=== PATIENT | female | born 1975 | race African-American/Black ===

== ENCOUNTER 2024-07-30 08:35 | Emergency (ER) | payer OTHER, SELFPAY ==
[2024-07-30] VITALS (7 sets, daily range): BP systolic 111–161; BP diastolic 85–110; PULSE 66–78; RESP 14–15; TEMP 36.4; O2SAT 99–100
--- NOTE | ~2024-07-30 | CT_ITS ---
EXAMINATION: CTA brain carotid DATE: 07/30/2024 10:03 INDICATION: Syncope. TECHNIQUE: Computed tomographic angiography (CTA) of the head was performed without and with 100 mL O mnipaque-350 intravenous contrast. CTA of the neck was performed with intravenous contrast. Automated exposure control and iterative reconstruction technique were employed. The dose-length product was 1 462.91 mGy-cm. Maximum intensity projection and volume rendered 3D-reconstructions were created by michelle chris technologist on a separate workstation. COMPARISON: None. FINDINGS: HEAD CTA: There is no intracranial hemorrhage, acute infarction, or abnormal intracranial mass lesion . The ventricles are normal in size. The mastoid air cells are normal. The orbits are normal. The par anasal sinuses are clear. Right vertebral artery is dominant. There is no significant stenosis of bas ilar artery or the posterior cerebral arteries. There is no significant stenosis of the intracranial internal carotid arteries or anterior or middle cerebral arteries. Anterior communicating artery is n ormal. The posterior communicating arteries are normal. There is no aneurysm. NECK CTA: There are no pathologically enlarged lymph nodes. There is no significant stenosis of the v ertebral arteries. There is no significant plaque in the proximal internal carotid. There is 0% steno sis of the proximal right internal carotid artery relative to normal distal artery lumen diameter (NA SCET criteria). There is 0% stenosis of the proximal left internal carotid artery relative to normal distal artery lumen diameter. There is mild cervical spondylosis. IMPRESSION: 1. Normal brain. No aneurysm or significant intracranial arterial stenosis 2. 0% stenosis of the proximal internal carotid arteries relative to normal distal artery lumen diame ters (NASCET criteria). Reviewed, dictated and finalized at location A. IMPRESSION: 1. Normal brain. No aneurysm or significant intracranial arterial stenosis 2. 0% stenosis of the proximal internal carotid arteries relative to normal dis jonathan artery lumen diameters (NASCET criteria).
--- NOTE | 2024-07-30 09:37 | ED.GENADULT ---
HPI - General Adult General Chief complaint: Recheck/Abnormal Lab/Rx Stated complaint: HTN Time Seen by Provider: 07/30/24 09:15 History of Present Illness HPI narrative: 48-year-old female presenting to the emergency department for evaluation after having a syncopal episode. Patient states approximately 3 days ago she was riding her palatine on and she was pressure herself hard when she had a syncopal episode causing herself to fall to the floor. Patient states she rested for a bit and suspects that she was unconscious for less than a minute. Patient was able to get back to her normal day and did go to work. She states she has been having some elevated blood pressures with her primary care physician but has not yet started on blood pressure medications. Patient is still concerned on why she had the syncopal episode. Patient states during the fall she did injure her right hip and right pinky toe but does not want any imaging of these. Related Data Home Medications Medication Instructions Recorded Confirmed No Home Medications 07/30/24 07/30/24 Allergies Allergy/AdvReac Type Severity Reaction Status Date / Time No Known Allergies Allergy Verified 07/30/24 08:43 Review of Systems Review of Systems: All systems reviewed & are unremarkable except as noted in HPI and below Exam Narrative: APPEARANCE: Well appearing, no pain, no distress, well-nourished. HEAD: normocephalic, atraumatic. EYES: PERRLA/EOMI, conjunctivae clear. NOSE: Normal no drainage EARS:TMS clear with good light reflex. THROAT: Pharynx clear, no exudate. NECK: Supple. No adenopathy, no masses. RESPIRATORY: Airway patent, respirations nonlabored. Clear to auscultation bilaterally, no rales, rhonchi, wheezing. CARDIOVASCULAR: Regular rate and rhythm without murmurs rubs or gallops. ABDOMINAL: Soft, nontender, nondistended, normal bowel sounds MUSCULOSKELETAL: Moves all extremities. Strength/ROM intact, No edema, No calf tenderness. NEURO: Alert. Cranial nerves II through XII intact. Good gait. Good coordination SKIN: Warm, dry. Normal Color Course Vital Signs Vital signs: Vital Signs Temperature 97.5 F L 07/30/24 08:41 Pulse Rate 78 07/30/24 08:41 Respiratory Rate 14 07/30/24 08:41 Blood Pressure 161/97 H 07/30/24 08:41 Pulse Oximetry 99 07/30/24 08:41 Oxygen Delivery Room Air 07/30/24 08:41 Temperature 97.5 F L 07/30/24 08:41 Pulse Rate 68 07/30/24 11:10 Respiratory Rate 15 07/30/24 10:58 Blood Pressure 111/96 H 07/30/24 11:35 Pulse Oximetry 100 07/30/24 10:58 Oxygen Delivery Room Air 07/30/24 08:41 Medical Decision Making MDM Narrative Medical decision making narrative: 48-year-old female presenting to the emergency department for evaluation for having a syncopal episode 3 days ago while working out. Patient is currently afebrile with no leukocytosis and a stable hemoglobin of 14.1. Patient has a normal INR. Patient has no acute electrolyte abnormalities. Patient's thyroid hormone is normal. EKG showed sinus bradycardia with possible left atrial enlargement with nonspecific T-wave abnormalities. Patient does have history of hypertension. Patient had negative orthostatics. Patient was offered admission for further syncopal workup but patient declined. Patient was advised to have close follow-up with her primary care physician. All questions concerns were addressed. Differential Diagnosis Differential Diagnosis: CVA, TIA, seizure, of syncope, cardiac arrhythmia Vital Signs Vital Signs: Vital Signs Temperature 97.5 F L 07/30/24 08:41 Pulse Rate 78 07/30/24 08:41 Respiratory Rate 14 07/30/24 08:41 Blood Pressure 161/97 H 07/30/24 08:41 Pulse Oximetry 99 07/30/24 08:41 Oxygen Delivery Room Air 07/30/24 08:41 Temperature 97.5 F L 07/30/24 08:41 Pulse Rate 68 07/30/24 11:10 Respiratory Rate 15 07/30/24 10:58 Blood Pressure 111/96 H 07/30/24 11:35 Pulse O
[2024-07-30 09:41] LABS: Basophils Percent Auto 0.5 % (0.2-1.2); Eosinophils Absolute Auto 0.1 K/mm3 (0-0.3); Eosinophils Percent Auto 1.9 % (0-4.4); Hematocrit 40.9 % (37.0-47.0); Hemoglobin 14.1 g/dL (12.0-15.0); Immature Granulocyte Absolute 0.01 K/mm3 (0.00-0.031); Immature Granulocyte Percent A 0.2 % (0-0.5); Lymphocytes Percent Auto 28.7 % (18.3-44.2); Mean Corpuscular HGB Conc 34.5 g/dl (32-36); Mean Corpuscular Hemoglobin 31.3 pg (26-34); Mean Corpuscular Volume 90.9 fl (80-100); Mean Platelet Volume 11.5 fl (7.4-10.4); Monocytes Absolute Auto 0.3 K/mm3 (0.1-0.6); Monocytes Percent Auto 4.6 % (2.6-8.5); Neutrophils Absolute Auto 3.8 K/mm3 (1.3-6.7); Neutrophils Percent Auto 64.1 % (45.5-73.1); Platelet Count Result 246 k/mm3 (150-375); Red Cell Distribution Width 12.3 % (11.5-14.5); White Blood Count 5.9 K/mm3 (4.5-10.0)
[2024-07-30 09:51] LABS: Alanine Aminotransferase 35 U/L (6-35); Albumin Level 4.7 g/dL (3.5-5.1); Alkaline Phosphatase 77 U/L (38-126); Anion Gap 9 mmol/L (4-12); Aspartate Amino Transferase 31 U/L (14-36); Blood Urea Nitrogen 12 mg/dL (7-17); Calcium 10.4 mg/dL (8.4-10.2); Carbon Dioxide 24 mmol/L (22-30); Chloride 105 mmol/L (98-107); Estimated CRCL calculation 71 ml/min; Estimated Glomerular Filt Rate > 60; Glucose 101 mg/dL (65-110); INR 0.9; Magnesium 2.2 mg/dL (1.6-2.3); Potassium 3.5 mmol/L (3.4-5.0); Prothrombin Time 12.9 Seconds (11.1-14.7); Sodium 138 mmol/L (137-145)
[2024-07-30 09:52] LABS: Partial Thromboplastin Time 29.4 Seconds (22.3-36.8)
[2024-07-30 10:02] LABS: Estimated CRCL calculation 64 ml/min; Estimated Glomerular Filt Rate > 60
[2024-07-30 10:32] LABS: Thyroid Stimulating Hormone Reflex 0.976 uIU/mL (0.465-4.68)
--- NOTE | 2024-07-30 10:39 | ECG_ITS ---
Test Date: 2024-07-30 10:55:52 Measurements Intervals [place] Rate: 56 P: 51 WV: 158 QRS: 29 QRSD: 85 T: 24 QT: 408 QTc: 396 Interpretive Statements SINUS BRADYCARDIA POSSIBLE LEFT ATRIAL ENLARGEMENT [-0.1mV P WAVE IN V1/V2] NONSPECIFIC T-WAVE ABNORMALITY No previous ECG available for comparison Electronically Signed On 07-30-2024 11:00:55 CDT by Ann Walker M.D.
--- NOTE | 2024-07-30 11:15 | PC.NURSE ---
Bedside report given to Anya GAUTHIER, all questions answered
== END 2024-07-30 11:47 | disposition home or self-care (01) ==
PROVIDERS: Emergency Provider Emergency Medicine
DX: R55 Syncope and collapse (principal); R00.1 Bradycardia, unspecified; R94.31 Abnormal electrocardiogram [ECG] [EKG]
CPT/HCPCS: 36415; 70496; 70498; 80053; 83735; 84443; 85025; 85610; 85730; 93005; 99284; Q9967

== ENCOUNTER 2025-07-25 09:00 | Emergency (ER) | payer BC, SELFPAY ==
[2025-07-25 09:09] VITALS: BP 145/84; PULSE 62; RESP 16; TEMP 36.6; O2SAT 100
--- NOTE | 2025-07-25 09:10 | ED_ITS ---
HPI - General Adult General Chief complaint: Allergic Reaction Stated complaint: Allergic reaction Source: patient Mode of arrival: ambulatory Limitations: no limitations History of Present Illness HPI narrative: Pt is a 49 y/o female presenting with c/o suspected allergic reaction. Pt reports on Wednesday, her tongue and throat started feeling itchy. Sx have continued since onset. No interventions. Reports being placed on Amoxicillin for dental issue 1 week ago--stopped taking abx when sx began. Denies any swelling, rash, difficulty swallowing. No other new products. No additional complaints. Related Data Home Medications ?Medication ?Instructions ?Recorded ?Confirmed ?Last Taken ?Type cetirizine 10 mg tablet (Zyrtec) 10 mg PO DAILY PRN 05/25/25 Unknown History amoxicillin 500 mg capsule mg 07/25/25 Unknown Histor y Allergies Allergy/AdvReac Type Severity Reaction Status Date / Time amoxicillin Allergy Severe Anaphylaxis Verified 07/25/25 09:31 Review of Systems Review of Systems: CONSTITUTIONAL: Denies body aches, fever, chills, or sweats. EYES: Denies visual changes, redness, or discharge. ENT: Reports itchy tongue, itchy throat. Denies rhinorrhea, congestion, sore throat, or otalgia. CARDIOVASCULAR: Denies chest pain, palpitations, or edema. RESPIRATORY: Denies cough or dyspnea. GASTROINTESTINAL: Denies abdominal pain, nausea, vomiting, or diarrhea. GENITOURINARY: Denies dysuria or hematuria. SKIN: Denies rash, itching, or wounds. MUSCULOSKELETAL: Denies back pain, joint pain, or myalgia. NEUROLOGIC: Denies headache, numbness, tingling, or weakness. PSYCH: Denies depression or anxiety. All systems reviewed & are unremarkable except as noted in HPI and below [facility] Past Medical History Medical History (Updated 07/25/25 @ 10:07 by Dayo Carlos, ROGERIO) OAB (overactive bladder) Shingles (~08/2024) Family hx of colon cancer grandmother Essential hypertension (~08/2024) Syncope (~07/2024) Surgical History Surgical History Hx of cholecystectomy (~2005) H/O: section (~2004) Family History Family History Mother Hypertension Sibling Hypertension Grandparent Breast cancer Carcinoma of colon Hypertension Grandparent Breast cancer Hypertension Grandparent Hypertension Grandparent Hypertension Social History Social History Smoking status: Never smoker Alcohol intake: current Drinks per week: 4 Substance use: current Substance use type: marijuana Do You Feel Safe in your Home?: Yes Lack of Transportation: No Lack of Food: Never True Current Housing: I Have Housing Concerned About Future Housing: No Difficulty Paying Gas/Electric Bills: No Difficulty Paying for Meds: No Currently Unemployed: No Education: Associate Degree Difficulty w/ Childcare or Family Care: No Exam Narrative: GENERAL: Well-appearing, well-nourished, and in no acute distress. HEAD: Normocephalic, atraumatic. EYES: EOMI. No redness or drainage. Conjunctivae normal. ENT: Mucous membranes pink and moist. Nares clear. No rhinorrhea. TMs normal bilaterally. Uvula midline. Tongue is midline. There is moderate erythema, mild edema to uvula. Mild erythema to hard palate. White exudate noted to tonsils. Airway is patent. No evidence of zaid angina. No trismus. NECK: Normal AROM. Supple. No lymphadenopathy. CHEST: No respiratory distress. Clear to auscultation. HEART: Regular rate and rhythm. No murmur appreciated. Normal peripheral pulses. EXTREMITIES: Normal range of motion. No edema. SKIN: Warm, dry, no rash. Capillary refill normal. Normal skin turgor. NEURO: No focal deficits. Alert and oriented x3. Gait steady. PSYCH: Normal affect. No signs of depression or anxiety. Course Course Emergency Course: No strep culture ordered--recently on abx x 1 week--likely thrush as pt does not have sore throat--only swabbed due to exudate--exudate being treated as thrush Pt reports improvement of sx after meds. Ddx: allergic reaction/angioedema, thrush. Given improvement of sx after meds, will continue prednisone, antihistamine while also covering for thrush given physical exam findings and recent abx use. Discussed elevated blood pressure readings with patient and advised daily BP monitoring and f/u with PCP if persisting. Level of Care: Express Care Visit Vital Signs Vital signs: Vital Signs Temperature 97.9 F 07/25/25 09:09 Pulse Rate 62 07/25/25 09:09 Respiratory Rate 16 07/25/25 09:09 Blood Pressure 145/84 H 07/25/25 09:09 Pulse Oximetry 100 07/25/25 09:09 Temperature 97.9 F 07/25/25 09:09 Pulse Rate 62 07/25/25 09:09 Respiratory Rate 16 07/25/25 09:09 Blood Pressure 145/84 H 07/25/25 09:09 Pulse Oximetry 100 07/25/25 09:09 Medical Decision Making Vital Signs Vital Signs: Vital Signs Temperature 97.9 F 07/25/25 09:09 Pulse Rate 62 07/25/25 09:09 Respiratory Rate 16 07/25/25 09:09 Blood Pressure 145/84 H 07/25/25 09:09 Pulse Oximetry 100 07/25/25 09:09 Temperature 97.9 F 07/25/25 09:09 Pulse Rate 62 07/25/25 09:09 Respiratory Rate 16 07/25/25 09:09 Blood Pressure 145/84 H 07/25/25 09:09 Pulse Oximetry 100 07/25/25 09:09 Lab Data Labs: Lab Results 07/25/25 Range/Units 09:26 POC Grp A Strep Screen Negative (Negative) Discharge Plan Discharge Clinical Impression: Pruritus of soft tissue of mouth, Candidiasis of mouth, Essential hypertension Patient Disposition: Home Condition: Improved Instructions: Antibiotic Form, Oral Candidiasis (ED), Anaphylaxis (ED) Additional Instructions: Continue taking pepcid, benadryl per the package instructions Call your doctor today to let them know of your symptoms/visit Go straight to ER should your symptoms become worse or should any new symptoms develop Patient Language: Estonian Prescriptions: New clotrimazole 10 mg rain See Rx Instructions .ROUTE .COMPLEX Qty: 50 0RF Rx Instructions: 5x/day for 10 days prednisone 20 mg tablet 40 mg PO DAILY Qty: 10 0RF No Action amoxicillin 500 mg capsule cetirizine [Zyrtec] 10 mg tablet 10 mg PO DAILY PRN oxybutynin chloride 10 mg tablet extended release 24hr 10 mg PO DAILY Qty: 90 1RF lisinopril 20 mg tablet 20 mg PO DAILY Qty: 90 1RF Follow-up/Referrals: Clau Mayo NP [Primary Care Provider, [facility]] - 07/26/25 Time of Disposition: 10:05
[2025-07-25] MEDS: diphenhydrAMINE HCl CAP 25 MG CAPSULE PO (09:23)
[2025-07-25] MEDS: FAMOTIDINE 20 MG TABLET PO (09:25)
[2025-07-25 09:41] LABS: EDSTREPNEGPOS1 Negative (Negative)
== END 2025-07-25 10:10 | disposition home or self-care (01) ==
PROVIDERS: Emergency Provider Registered Nurse; PCP Nurse Practitioner Family
DX: L29.9 Pruritus, unspecified (principal); B37.0 Candidal stomatitis; I10 Essential (primary) hypertension; N32.81 Overactive bladder; F12.90 Cannabis use, unspecified, uncomplicated
CPT/HCPCS: 87880; 96372; 99213; A9270; G0463; J2919